=== PATIENT | male | born 1990 | race Two or more races ===

== ENCOUNTER 2019-05-06 20:35 | Emergency (ER) | payer MEDICAID ==
[~2019-05-06] VITALS: Ht 157.5 cm; Wt 65.8 kg
[2019-05-06 20:56] VITALS: BP 138/84
[2019-05-06 21:39] LABS: Eosinophils # (auto) 0.1 uL; Eosinophils % (auto) 1.4 % (0.0-7.0); Hematocrit 52.2 % (41.0-53.0); Lymphocytes # (auto) 3.5 uL; Monocytes # (auto) 0.5 uL; Neutrophils # (auto) 4.2 uL; Nucleated Red Blood Cells % 0.2 %; White Blood Cell 8.3 10^3/uL (4.4-10.8)
[2019-05-06 21:40] LABS: Basophils # (auto) 0 uL; Basophils % (auto) 0.5 % (0.0-2.0); Hemoglobin 18.1 g/dL (13.5-17.5); Lymphocytes % (auto) 42.2 % (10.0-50.0); Mean Corpuscular Hemoglobin 31.5 pg (28.0-32.0); Mean Corpuscular Hgb Conc. 34.7 g/dL (32.0-36.0); Mean Corpuscular Volume 90.9 fL (80.0-100.0); Monocytes % (auto) 5.5 % (0.0-12.0); Neutrophils % (auto) 50.4 % (37.0-80.0); Platelet Count (auto) 226 10^3/uL (140-450); Red Blood Cells 5.74 10^6/uL (4.5-5.90); Red Cell Distribution Width 12.9 % (11.8-14.3)
[2019-05-06 21:58] LABS: Alanine Aminotransferase 71 U/L (16-61); Albumin 4.2 g/dL (3.4-5.0); Anion Gap 11 (5-15); Aspartate Aminotransferase 37 U/L (15-37); BUN/Creatinine Ratio 12.2; Blood Urea Nitrogen 14 mg/dL (7-18); Calcium 8.9 mg/dL (8.5-10.1); Carbon Dioxide 24 mmol/L (21-32); Chloride 103 mmol/L (98-107); GFR African American 95 mL/min; GFR Non-African American 79 mL/min; Glucose 112 mg/dL (74-106); Potassium 3.2 mmol/L (3.5-5.1); Sodium 138 mmol/L (136-145)
[2019-05-06 22:02] LABS: Alkaline Phosphatase 105 U/L (45-117); Bilirubin, Total 0.9 mg/dL (0.2-1.0); Total Protein 8.6 g/dL (6.4-8.2)
== END 2019-05-07 01:42 | disposition left against medical advice (07) ==
LOC: ER 20:41
DX: R07.9 Chest pain, unspecified (principal); Z53.21 Procedure and treatment not carried out due to patient leaving prior to being seen by health care provider
CPT/HCPCS: 36415; 71046; 80053; 84484; 85025; 93005